=== PATIENT | female | born 1980 | race Caucasian/White ===

== ENCOUNTER → 2024-03-24 08:03 | Outpatient (REF) | payer OTHER, SELFPAY | LOC: WDC 08:03 | PROVIDERS: ATTENDING PHYSICIAN Nurse Practitioner Family; FAMILY PHYSICIAN Physician Assistant Medical | DX: N64.4 Mastodynia (principal) | CPT/HCPCS: 76642; 77062; 77066 ==

== ENCOUNTER → 2024-04-30 06:32 | Day surgery (SDC) | payer OTHER, SELFPAY ==
[2024-04-30 07:20] LABS: Glucose - Point of Care 118 mg/dl (70-99)
== END ==
LOC: GI 06:32
PROVIDERS: ATTENDING PHYSICIAN Specialist
DX: Z12.11 Encounter for screening for malignant neoplasm of colon (principal); K60.2 Anal fissure, unspecified; K62.5 Hemorrhage of anus and rectum
CPT/HCPCS: 45378; 82962

== ENCOUNTER → 2025-03-28 19:27 | Outpatient (REF) | payer OTHER, SELFPAY | LOC: WDC 19:27 | PROVIDERS: ATTENDING PHYSICIAN Obstetrics & Gynecology; FAMILY PHYSICIAN Physician Assistant Medical | DX: Z12.31 Encounter for screening mammogram for malignant neoplasm of breast (principal) | CPT/HCPCS: 77063; 77067 ==

== ENCOUNTER 2025-06-07 18:42 | Emergency (ER) | payer OTHER, SELFPAY ==
[2025-06-07 18:44] VITALS: BP 158/99
[2025-06-07 19:16] VITALS: BMI 26.6
[2025-06-07 20:18] VITALS: BP 113/86
[2025-06-07 20:31] LABS: Urine Character Clear (Clear)
[2025-06-07 20:34] LABS: Hematocrit 39.1 % (37.0-47.0); Hemoglobin 13.1 g/dL (12.0-16.0); Mean Corp Hgb Conc. 33.5 g/dL (33.0-37.0); Mean Corpuscular Volume 89.1 fL (81.0-99.0); Nucleated Red Blood Cells % 0 %; Platelet Count 243 10^3/uL (130-400); Red Cell Dist. Width 13.2 % (11.5-14.5)
[2025-06-07 20:41] LABS: Urine Squamous Cell 0-2 /LPF (Few)
[2025-06-07 20:42] LABS: Urine Red Blood Cell 0-2 /HPF (0-2); Urine White Cell 0-2 /HPF (0-5)
--- NOTE | 2025-06-07 22:25 | ED.GENMED ---
History of Present Illness
General
Chief Complaint: Gynecological Problem
Source: patient
Exam Limitations: none
Time Seen by Provider: 06/07/25 19:14
Nursing documentation reviewed up to this point in time: agreed with
History of Present Illness
History of Present Illness:
Patient to ED wt concern for stuck tampon. States 1 week ago she placed tampon but does not remember removing it. SHe was seen at a few days ago, no foreign body detected. told her something didnt feel right during intercourse.
Brought self to ED for eval She denies any vaginal discharge, foul odor.
Past History
Past History
ED Past Medical History: None
ED Past Surgical History: Appendectomy
Social History
Tobacco: Non-smoker
Alcohol: None
Drug: None
Employment: Employed
Review of Systems
Review of Systems
Allergies reviewed?: Yes
All Other Systems: ROS reviewed and negative except as documented in HPI and ROS
Constitutional: Reports no symptoms
EENT: Reports no symptoms
Respiratory: Reports no symptoms
Cardiac: Reports no symptoms
ABD/GI: Reports no symptoms
: Reports other (possible stuck tampon)
Musculoskeletal: Reports no symptoms
Skin: Reports no symptoms
Neurological: Reports no symptoms
Psychiatric: Reports no symptoms
Phy Exam
General Physical Exam
General Presentation: well appearing and no apparent distress
General age: appears stated age
General Skin: warm and dry
General Habitus: normal
General Mental: alert
Gastrointestinal Exam
Gastrointestinal Exam: normal bowel sounds, non tender, soft, no organomegaly and non distended
Genitourinary Exam Female
Exam Female: no adnexal tenderness, no bleeding, no CMT, no lesions, no mass, no vaginal discharge and other (No foreign body detected)
Vaginal Exam: normal
Vaginal Bleeding: none
Visual exam of cervix: os closed
Musculoskeletal Exam
Musculoskeletal Exam: full ROM and neuro vasc intact
Skin Exam
Skin Exam: normal color, warm/dry and no rash
Psychiatric Exam
Psychiatric Exam: normal mood/affect
Course
Orders/Labs/Results
Orders:
Orders
06/07/25 20:24
Complete Blood Count/With Diff Urgent
Urinalysis Reflex To Culture Urgent
Date Specimen was Collected: 06/07/25
Time Specimen was Collected: 20:20
Urine Microscopic Reflex Cult Urgent
Abnormal Lab Results
06/07/25
20:24
WBC 11.3 H 10^3/uL
(4.8-10.8)
Absolute Neuts (auto) 6.7 H 10^3/uL
(1.4-6.5)
Absolute Lymphs (auto) 3.7 H 10^3/uL
(1.2-3.4)
Absolute Monos (auto) 0.7 H 10^3/uL
(0.1-0.6)
Ur Occult Blood Reflex 2+ A
(Negative)
Urine Bacteria (Reflex) Few A
(Negative)
Urine Albumin (Reflex) 1+ A
(Neg - Trace)
06/07/25 20:24
Vital Signs
Initial and Last Documented VS:
Initial Vital Signs
Temp Pulse Resp BP Pulse Ox
99.2 F 73 17 158/99 99
06/07/25 18:44 06/07/25 18:44 06/07/25 18:44 06/07/25 18:44 06/07/25 18:44
Last Documented Vital Signs
Temp Pulse Resp BP Pulse Ox
99.2 F 78 18 113/86 97
06/07/25 18:44 06/07/25 20:18 06/07/25 20:18 06/07/25 20:18 06/07/25 22:28
*Pulse Oximetry
SaO2: 97
Oxygen Mode of Delivery: Room air
Patient hypoxic: no
*Critical Care Note
Total Time (30-74mins, 75-104mins- exclusive of procedures): Not Applicable
Update Note
Update Note:
Patient to ED with concern for stuck tampon. SHe placed tampon approx 7 days ago and does not remember removing it. SHe was seen at an a few days ago. No tampon found on exam at that time. Tonight speculum exam repeated in ED. No
tampon/foreign body detected. No abdnormal discharge. Discussed this with patient and she is relieved. Will discharge home and she will follow upw ith PCP. Given instructions on s/s to return to ED and she is agreeable to plan.
ED Attending Note
-
Portions of this chart may have been created with voice recognition software.� Occasional wrong word or��sound alike� substitutions may have occurred due to the inherent limitations of voice recognition software.
Discharge Plan
Departure
Patient Disposition: Home (Routine Discharge)
Date of Disposition: 06/07/25
Time of Disposition: 20:58
Patient with high blood pressure during this ER visit?: No
Condition: Good
Covid-19: Not Applicable
Discharge Problem:
Gynecological complaint
Instructions: General
Prescriptions:
No Action
Vitamin Tablet
1 tab PO DAILY
Fiber
1 tab .Route DAILY
acetaminophen-codeine 1 TABLET tablet
1 tab PO Q4HPRN PRN (Reason: severe pain) Qty: 15 0RF
hydrocortisone 1 APPLIC cream
1 applic [place] Q6HPRN PRN (Reason: hemorrhoids) Qty: 0 0RF
ibuprofen 600 MG tablet
600 mg PO Q4HPRN PRN (Reason: moderate pain/cramps) Qty: 30 0RF
Referrals:
Bebe Smith PA-C [Family Provider, Family Practice]
Activity Restrictions/Additional Instructions:
NO vaginal foreign body was detected on your exam tonight. Follow up with your hand former helper as needed.
Interventions
Interventions:
*Risk Screen - Suicide Last Done: 06/07/25 18:46
*General Assessment Last Done: 06/07/25 18:46
*Neglect/Abuse Screening Last Done: 06/07/25 18:46
*ED- Fall Risk Assessment Last Done: 06/07/25 19:17
*ED COVID-19 Vaccine History Last Done: 06/07/25 18:46
*Nursing Disposition Last Done: 06/07/25 21:09
ED-Female Genitourinary Assessment Last Done: 06/07/25 19:18
Discharge Date and Time
Discharge Date/Time: 06/07/25 21:10
Print Language: CUBAN
== END 2025-06-07 21:10 | disposition home or self-care (01) ==
LOC: EMR 18:42
PROVIDERS: Nurse Practitioner; EMERGENCY PHYSICIAN Emergency Medicine; FAMILY PHYSICIAN Physician Assistant Medical; REFERRING PHYSICIAN Obstetrics & Gynecology
DX: Z03.823 Encounter for observation for suspected inserted (injected) foreign body ruled out (principal)
CPT/HCPCS: 99283; 81003; 81015; 85025